=== PATIENT | male | born 1940 | race Two or more races ===

== ENCOUNTER 2016-02-27 21:01 | Inpatient (IN) | payer MEDICARE, BC ==
[~2016-02-27] VITALS: Ht 172.7 cm; Wt 83.9 kg
[2016-02-27 21:56] LABS: ANION GAP 15 (5-14); BASOPHILS % (AUTO) 0.2 % (0.0-2.0); CALCIUM, SERUM 8.7 mg/dL (8.5-10.1); CARBON DIOXIDE 25 mmol/L (21-32); CHLORIDE 104 mmol/L (98-107); CREATININE 1.8 mg/dL (0.6-1.3); DIFF TOTAL % 100 %; EOSINOPHILS # (AUTO) 0.3 /CMM (0.0-0.7); GLUCOSE 116 mg/dL (74-106); HEMATOCRIT 43 % (39-51); HEMOGLOBIN 14.1 g/dL (13.5-17.5); LYMPHOCYTES # (AUTO) 3.4 /CMM (0.8-4.8); LYMPHOCYTES % (AUTO) 26.7 % (20.0-44.0); MEAN CORPUSCULAR HEMOGLOBIN 29 PG (26.0-33.0); MEAN CORPUSCULAR HGB CONC 33 g/dl (31.0-36.0); MEAN CORPUSCULAR VOLUME 88 fL (80-96); MONOCYTES # (AUTO) 1.4 /CMM (0.1-1.30); MONOCYTES % (AUTO) 10.9 % (2.0-12.0); NEUTROPHILS # (AUTO) 7.7 /CMM (1.8-8.9); NEUTROPHILS % (AUTO) 60.2 % (43.0-81.0); PLATELET COUNT (AUTO) 184 /CMM (150-450); POTASSIUM 3.7 mmol/L (3.5-5.1); RED BLOOD CELL COUNT(AUTO) 4.87 MIL/uL (4.5-6.0); SODIUM SERUM 140 mmol/L (136-145); UREA NITROGEN, BLOOD 40 mg/dL (7-18); WHITE BLOOD COUNT (AUTO) 12.9 K/uL (4.3-11.0)
[2016-02-27] MEDS ORDERED: IV NS 0.9% 1,000 ML ONE (21:58)
[2016-02-27] MEDS ORDERED: IV SET PRIMARY 1 EA INFUS.SET MC ONE (21:58)
[2016-02-27 21:59] LABS: INR 0.99 (0.87-1.13); PROTHROMBIN TIME 10.7 SECS (9.5-12.7)
[2016-02-27] MEDS ORDERED: IV NS 0.9% 1,000 ML BAG IV ONE (22:00)
[2016-02-27 22:01] LABS: ALANINE AMINOTRANSFERASE 26 U/L (12-78); ASPARTATE AMINOTRANSFERASE 22 U/L (15-37); BILIRUBIN,DIRECT 0.1 mg/dL (0.0-0.2); BILIRUBIN,TOTAL 0.2 mg/dL (0.2-1.0); INDIRECT BILIRUBIN 0.1 mg/dL (0.0-1.1); TOTAL PROTEIN, SERUM 7.4 g/dL (6.4-8.2)
[2016-02-27 22:04] LABS: TROPONIN I < 0.017 ng/mL (0.00-0.056)
[2016-02-27] MEDS ORDERED: IV NS 0.9% 1,000 ML IV PRN (23:14)
[2016-02-27] MEDS ORDERED: OLME20TA15 PO (23:22)
[2016-02-27] MEDS ORDERED: METO25TA6 PO (23:22)
[2016-02-27] MEDS ORDERED: ATOR10TA PO (23:30)
[2016-02-27] MEDS ORDERED: HYDROCODONE/APAP 5/325MG 1 EACH TABLET PO PRN (23:30)
[2016-02-27] MEDS ORDERED: PREG200C PO (23:30)
[2016-02-27] MEDS ORDERED: OMEP20TA68 PO (23:30)
[2016-02-27] MEDS ORDERED: MAG HYDROX/AL HYDROX/SIMETH 30 ML UDC PO PRN (23:30)
[2016-02-27] MEDS ORDERED: ZOLPIDEM TARTRATE 5 MG TABLET PO PRN (23:30)
[2016-02-27] MEDS ORDERED: MAGNESIUM HYDROXIDE 30 ML UDC PO PRN (23:30)
[2016-02-27] MEDS ORDERED: ONDANSETRON HCL/PF 4 MG/2 ML VIAL IVP PRN (23:30)
[2016-02-27] MEDS ORDERED: Z GUARD REMEDY 2 OZ OINT TP PRN (23:30)
[2016-02-28] VITALS (8 sets, daily range): BP systolic 120–162; BP diastolic 57–83
[2016-02-28] MEDS ORDERED: IV NS 0.9% 1,000 ML ONE (00:32)
[2016-02-28] MEDS ORDERED: ZOLPIDEM TARTRATE 5 MG TABLET ONE (00:32)
[2016-02-28] MEDS ORDERED: IV SET PRIMARY PUMP SET 1 EA INFUS.SET MC ONE (00:32)
[2016-02-28 00:42] LABS: ADD UA MICROSCOPIC NO; KETONES,URINE NEGATIVE (NEGATIVE); LEUKOCYTE ESTERASE ,URINE NEGATIVE (NEGATIVE); PH,URINE 5.5 (5.0-8.0)
[2016-02-28 06:51] LABS: BASOPHILS % (AUTO) 0.5 % (0.0-2.0); DIFF TOTAL % 100 %; EOSINOPHILS # (AUTO) 0.1 /CMM (0.0-0.7); EOSINOPHILS % (AUTO) 1.5 % (0.0-6.0); HEMATOCRIT 39 % (39-51); HEMOGLOBIN 13.1 g/dL (13.5-17.5); LYMPHOCYTES # (AUTO) 2.1 /CMM (0.8-4.8); LYMPHOCYTES % (AUTO) 23.9 % (20.0-44.0); MEAN CORPUSCULAR HEMOGLOBIN 30 PG (26.0-33.0); MEAN CORPUSCULAR HGB CONC 34 g/dl (31.0-36.0); MEAN CORPUSCULAR VOLUME 88 fL (80-96); MONOCYTES # (AUTO) 1.2 /CMM (0.1-1.30); MONOCYTES % (AUTO) 13.7 % (2.0-12.0); NEUTROPHILS # (AUTO) 5.2 /CMM (1.8-8.9); NEUTROPHILS % (AUTO) 60.4 % (43.0-81.0); PLATELET COUNT (AUTO) 150 /CMM (150-450); RED BLOOD CELL COUNT(AUTO) 4.43 MIL/uL (4.5-6.0); WHITE BLOOD COUNT (AUTO) 8.7 K/uL (4.3-11.0)
[2016-02-28 07:25] LABS: CALCIUM, SERUM 8.4 mg/dL (8.5-10.1); CREATININE 1.5 mg/dL (0.6-1.3); PHOSPHORUS 3.1 mg/dL (2.5-4.9); POTASSIUM 4.6 mmol/L (3.5-5.1)
[2016-02-28] MEDS: PREGABALIN 25 MG CAPSULE PO SCH ×2 (09:00→12:55)
[2016-02-28] MEDS ORDERED: IV NS 0.9% 1,000 ML IV PRN (09:08)
[2016-02-28] MEDS: ATORVASTATIN 10 MG TABLET PO SCH (10:31)
[2016-02-28] MEDS: PANTOPRAZOLE 40 MG TABLET.DR PO SCH (10:31)
[2016-02-28] MEDS: METOPROLOL TARTRATE 25 MG TABLET PO SCH ×2 (10:36→17:44)
[2016-02-28] MEDS: ACETAMINOPHEN 325 MG TABLET PO PRN ×2 (13:06→20:46)
[2016-02-28] MEDS ORDERED: PREGABALIN 100 MG CAPSULE PO SCH (17:14)
[2016-02-28] MEDS: PREGABALIN 100 MG CAPSULE PO SCH (17:54)
[2016-02-28] MEDS ORDERED: ZOLPIDEM TARTRATE 10 MG TABLET PO PRN (19:30)
[2016-02-29] VITALS: BP 141/81
[2016-02-29 04:00] VITALS: BP_SYST 124; BP_DIAS 62; BP_DIAS 68
[2016-02-29 08:00] VITALS: BP 134/75
[2016-02-29] MEDS: ATORVASTATIN 10 MG TABLET PO SCH (08:17)
[2016-02-29] MEDS: PANTOPRAZOLE 40 MG TABLET.DR PO SCH (08:17)
[2016-02-29 08:18] VITALS: BP 134/75
[2016-02-29] MEDS: PREGABALIN 100 MG CAPSULE PO SCH (08:18)
[2016-02-29] MEDS: METOPROLOL TARTRATE 25 MG TABLET PO SCH (08:18)
== END 2016-02-29 12:09 | disposition home or self-care (01) | DRG 73 ==
LOC: ER 21:03 → TELE1 23:10
PROVIDERS: ADMIT Internal Medicine; ATTEND Internal Medicine
DX: G90.8 Other disorders of autonomic nervous system (principal); N17.0 Acute kidney failure with tubular necrosis; E78.5 Hyperlipidemia, unspecified; D72.829 Elevated white blood cell count, unspecified; E66.9 Obesity, unspecified; G47.00 Insomnia, unspecified; K21.9 Gastro-esophageal reflux disease without esophagitis; M19.90 Unspecified osteoarthritis, unspecified site; N18.9 Chronic kidney disease, unspecified; Z95.3 Presence of xenogenic heart valve; I48.0 Paroxysmal atrial fibrillation; Z68.28 Body mass index [BMI] 28.0-28.9, adult; G62.9 Polyneuropathy, unspecified
CPT/HCPCS: 36415; 70450-TC; 71010-TC; 80048-TC; 80076-TC; 81000-TC; 83605-TC; 83735-TC; 84100-TC; 84484-TC; 85025-TC; 85730-TC; 87040-TC; 87081-TC; 87086-TC; 93307-TC; 97001-TC; A4606; J7030; Z7610